=== PATIENT | female | born 1995 | race Hispanic/Latino ===

== ENCOUNTER 2017-10-02 20:35 | Emergency (ER) | payer OTHER, SELFPAY ==
--- NOTE | 2017-10-02 21:59 | RAD ---
LEFT FOOT RADIOGRAPHS THREE VIEWS: 10/02/2017 PROVIDED CLINICAL HISTORY: Foot pain. FINDINGS: There is no evidence for fracture or other acute osseous abnormality. If there is persistent clinica l concern, conservative management and follow-up imaging are advised. IMPRESSION: As above. POS: [facility]
== END 2017-10-02 21:17 | disposition home or self-care (01) ==
LOC: ERS 20:35
DX: S90.122A Contusion of left lesser toe(s) without damage to nail, initial encounter (principal); W22.8XXA Striking against or struck by other objects, initial encounter